=== PATIENT | female | born 1990 | race African-American/Black ===

== ENCOUNTER 2016-09-13 16:39 | Emergency (ER) | payer MEDICAID ==
--- NOTE | 2016-09-13 18:59 | ER Document Report ---
HPI - HPI Onset: This afternoon Onset/Duration: Gradual Quality of pain: Cramping Pain Level: 2 Associated Symptoms: Other - vag spotting Exacerbated by: Denies Relieved by: Denies Notes: 26-year-old female who is . Patient took a test 3 days ago and was positive. Patient presents today for some vaginal spotting with going through 2 pads. Also has some mild pelvic cramping. No leakage of fluid. Nausea but no vomiting. Patient has not seen her [facility] doctor yet. Patient does not live locally. - CARDIOVASCULAR Cardiovascular: DENIES: Chest pain - DERM Skin Color: Normal Past Medical History - General Information source: Patient, [facility] Records Last Menstrual Period: 07/2016 - Social History Smoking Status: Never Smoker Chew tobacco use (# tins/day): No Frequency of alcohol use: None Drug Abuse: None Patient has suicidal ideation: No Patient has homicidal ideation: No - Medical History Medical History: Negative Renal/ Medical History: Denies: Hx Peritoneal Dialysis - Immunizations Hx Diphtheria, Pertussis, Tetanus Vaccination: Yes Vertical Provider Document - CONSTITUTIONAL Agree With Documented VS: Yes Exam Limitations: No Limitations General Appearance: WD/WN, No Apparent Distress - INFECTION CONTROL TRAVEL OUTSIDE OF THE [place] IN LAST 30 DAYS: No - HEENT HEENT: Normocephalic - NECK Neck: Normal Inspection - RESPIRATORY Respiratory: Breath Sounds Normal O2 Sat by Pulse Oximetry: 98 - CARDIOVASCULAR Cardiovascular: Regular Rate, Regular Rhythm - GI/ABDOMEN Gastrointestinal: Abdomen Soft, Abdomen Non-Tender, Normal Bowel Sounds - BACK Back: Normal Inspection - MUSCULOSKELETAL/EXTREMETIES Musculoskeletal/Extremeties: MAEW, FROM, Non-Tender - NEURO Level of Consciousness: Awake, Alert, Appropriate Motor/Sensory: No Motor Deficit, No Sensory Deficit Course - Re-evaluation Re-evalutation: 09/13/16 18:59 We will check quantitative hCG. If level is high enough, will get ultrasound. - Vital Signs Vital signs: Temp Pulse Resp BP Pulse Ox 98.4 F 79 16 121/70 98 09/13/16 17:03 09/13/16 17:03 09/13/16 17:03 09/13/16 17:03 09/13/16 17:03
--- NOTE | 2016-09-13 21:26 | ER Document Report ---
ED GI/ - General Mode of Arrival: Ambulatory Information source: Patient TRAVEL OUTSIDE OF THE [place] IN LAST 30 DAYS: No - HPI Patient complains to provider of: Other - see narrative - General Chief Complaint: Vaginal Bleeding Stated Complaint: SPOTTING/ABDOMEN PAIN Time Seen by Provider: 09/13/16 18:45 Notes: Patient is a 26-year-old female who presents to the emergency department today with complaints of vaginal cramping and spotting. Patient states she found out three days ago she was but she is not sure how far along she is. Patient states she has bilateral flank pain. Patient denies any recent intercourse. (PRABHAKAR MAX) - Related Data Allergies/Adverse Reactions: No Known Allergies Allergy (Unverified 09/13/16 17:01) Past Medical History - General Information source: Patient, [facility] Records Last Menstrual Period: 07/2016 - Social History Smoking Status: Never Smoker Chew tobacco use (# tins/day): No Frequency of alcohol use: None Drug Abuse: None Family History: Reviewed & Not Pertinent Patient has suicidal ideation: No Patient has homicidal ideation: No - Medical History Medical History: Negative Surgical Hx: Negative - Immunizations Hx Diphtheria, Pertussis, Tetanus Vaccination: Yes Review of Systems - Review of Systems Constitutional: No symptoms reported EENT: No symptoms reported Cardiovascular: No symptoms reported Respiratory: No symptoms reported Gastrointestinal: No symptoms reported Genitourinary: See HPI, Flank pain - bilateral Female Genitourinary: See HPI, , Vaginal bleeding - w/ cramping Musculoskeletal: No symptoms reported Skin: No symptoms reported Hematologic/Lymphatic: No symptoms reported Neurological/Psychological: No symptoms reported -: Yes All other systems reviewed and negative Physical Exam - Vital signs Vitals: Temp Pulse Resp BP Pulse Ox 98.4 F 79 16 121/70 98 09/13/16 17:03 09/13/16 17:03 09/13/16 17:03 09/13/16 17:03 09/13/16 17:03 - Notes Notes: Physical Exam: General: Alert, appears well. HEENT: Normocephalic. Atraumatic. PERRL. Extraocular movements intact. Oropharynx clear. Neck: Supple. Non-tender. Respiratory: No respiratory distress. Clear and equal breath sounds bilaterally. Cardiovascular: Regular rate and rhythm. Abdominal: Mild suprapubic tenderness with palpation. No distension. Normal Bowel Sounds. Back: Non-tender. No deformity or step off. Extremities: Moves all four extremities. Upper extremities: Normal inspection. Normal ROM. Lower extremities: Normal inspection. No edema. Normal ROM. Neurological: Normal cognition. AAOx4. Normal speech. Psychological: Normal affect. Normal Mood. Skin: Warm. Dry. Normal color. (PRABHAKAR MAX) - Genitourinary Notes: deferred to Production Editor (NAEL MORALES) Course - Re-evaluation Re-evalutation: 09/13/16 Patient with no acute findings in urine. Patient is and has a intrauterine at about 6 weeks. Patient does not want to do a pelvic exam tonight. She just wants to go home. She has been given a copy of her blood work. She is to follow-up with her [facility] later this week. Stable for discharge. Return if any worsening or concerning symptoms. (NAEL MORALES) - Vital Signs Vital signs: Temp Pulse Resp BP Pulse Ox 98.4 F 79 16 121/70 98 09/13/16 17:03 09/13/16 17:03 09/13/16 17:03 09/13/16 17:03 09/13/16 18:59 - Laboratory Laboratory results interpreted by me: 09/13/16 09/13/16 09/13/16 19:15 19:15 19:15 Beta HCG, Quant 46670.00 H Urine Urobilinogen 2.0 H Urine HCG, Qual POSITIVE H Discharge - Discharge Clinical Impression: Cramping affecting , antepartum Qualifiers: Weeks of gestation: less than 8 weeks Qualified Code(s): Z3A.01 - Less than 8 weeks gestation of Condition: Stable Disposition: HOME, SELF-CARE Instructions: ([facility]), Threatened Miscarriage ([facility]) Additional Instructions: Please follow-up with your primary care doctor and your [facility] as soon as you are able. Please take a copy of your ultrasound and blood work with you. Please return if you have any worsening or concerning symptoms. Forms: Return to Work Referrals: ROB LOPEZ MD [Primary Care Provider] - Follow up as needed Scribe Attestation: 09/13/16 23:52 I personally performed the services described in the documentation, reviewed and edited the documentation which was dictated to the scribe in my presence, and it accurately records my words and actions. (NAEL MORALES) Scribe Documentation - Scribe Written by Malkae:: Deshawn Oseguera, [id number] acting as scribe for :: Bud
--- NOTE | 2016-09-13 22:31 | RADIOLOGY REPORT (SQ) ---
EXAM DESCRIPTION: U/S OB TRANSVAGINAL W/O DOP COMPLETED DATE/TIME: 09/13/2016 10:14 pm REASON FOR STUDY: , bleeding COMPARISON: None. TECHNIQUE: Transvaginal static and realtime grayscale images acquired of the pelvis. Additional asmuel cted spectral and color Doppler images recorded. All images stored on PACs. [id number] LIMITATIONS: None. FINDINGS: FETUS: Living intrauterine . EGA: 6 weeks 3 days ELAYNE: 05/06/2017 FHR: 120 beats per minute. SUBCHORIONIC BLEED: Possible SIZE OF BLEED: Small UTERUS: No masses. No anomalies. Possible synechiae resulting in amniotic shelf CERVICAL LENGTH: Not recorded Closed. RIGHT ADNEXA: Normal ovary with normal vascular flow. No adnexal free fluid. No adnexal masses. LEFT ADNEXA: Normal ovary with normal vascular flow. No adnexal free fluid. No adnexal masses. FREE FLUID: None. OTHER: No other significant finding. IMPRESSION: LIVING INTRAUTERINE . EGA 6 weeks 3 days Possible small subchorionic bleed. Trimester of : First - 0 to 13 weeks. TECHNICAL DOCUMENTATION: JOB ID: [id number] [employer]- All Rights Reserved
[2016-09-13 23:09] LABS: APPEARANCE,URINE SLIGHTLY-CLOUDY; BILIRUBIN,URINE NEGATIVE (NEGATIVE); GLUCOSE, URINE NEGATIVE (NEGATIVE); KETONES,URINE NEGATIVE (NEGATIVE); LEUKOCYTE ESTERASE,URINE NEGATIVE (NEGATIVE); NITRITE,URINE NEGATIVE (NEGATIVE); PROTEIN,URINE NEGATIVE (NEGATIVE); URINE SPECIFIC GRAVITY 1.031
[2016-09-14 05:28] VITALS: BP 119/67
== END 2016-09-13 22:19 | disposition home or self-care (01) ==
LOC: ER 16:39
DX: O26.891 Other specified pregnancy related conditions, first trimester (principal); R10.9 Unspecified abdominal pain; O26.851 Spotting complicating pregnancy, first trimester; Z3A.01 Less than 8 weeks gestation of pregnancy
CPT/HCPCS: 36415; 76817; 81001; 81025; 84702; 86900; 86901; 99284